=== PATIENT | male | born 1980 | race African-American/Black ===

== ENCOUNTER 2020-10-14 11:02 | Emergency (ER) | payer MEDICAID ==
[~2020-10-14] VITALS: Ht 175.3 cm; Wt 117.9 kg
[2020-10-14 11:08] VITALS: BP 150/88
--- NOTE | 2020-10-14 11:13 | NUR ---
Patient ambulated to bed 3. RN evaluating the patient at bedside.
--- NOTE | 2020-10-14 11:35 | NUR ---
40 y/o M coming in from home with c/c sore throat x 5 days. Patient states history of sleep apnea and used his old CPAP machine on Saturday. Patient reports cleaning out the system, however, forgot to clean out the filter. Patient states on Saturday, he began experiencing sore throat, body aches, fever/chills, "swollen neck," and ear pain. Patient states sore throat as 10/10 pain, scratchy/intermittent, non-radiating that worsens with swallowing. Patient describes ear pain to bilateral ear, right more painful than left. Patient states OTC medications of Tylenol and Ibuprofen without relief; states masha/honey and salt water rinses without relief as well. Pt placed onto engine monitor; SpO2 98% on room air with good tidal volume; RR 22 even/unlabored. Lung sounds CTA. Denies any recent Covid vaccinations or exposure. Bed locked in lowest position, side rails x 1, call light in reach. PMH: sleep apnea Meds: Denies Sx: Back sx 2013 NKA
--- NOTE | 2020-10-14 11:54 | NUR ---
Dr. Odell is evaluating patient at bedside.
[2020-10-14] MEDS ORDERED: AMPICILLIN/SULBACTAM 3 GM in NACL 0.9% 100 ML IV ONE (12:05)
[2020-10-14] MEDS ORDERED: KETOROLAC 15 MG/ML VIAL IVP ONE (12:05)
[2020-10-14] MEDS ORDERED: AMPICILLIN/SULBACTAM 3 GM VIAL ONE (12:12)
--- NOTE | 2020-10-14 12:17 | NUR ---
Signature obtained for CT Neck consent form.
--- NOTE | 2020-10-14 12:20 | NUR ---
Blood sample collected, handed to CPT Delonte at ER bedside.
--- NOTE | 2020-10-14 12:34 | NUR ---
Strep A swab collected, handed to CPT Delonte at ER bedside.
--- NOTE | 2020-10-14 12:35 | NUR ---
Patient is awake, sitting in high-fowlers position on telephone. histotechnologist supervisor remains in place; respirations even/unlabored. Bed locked in lowest position, side rails x 1, call light in reach. All pt needs met at this time.
--- NOTE | 2020-10-14 12:38 | NUR ---
Advised CT is delayed due to biopsy procedure.
[2020-10-14 12:40] LABS: BASOPHILS # (AUTO) 0.1 K/uL (0.00-0.22); BASOPHILS % (AUTO) 0.8 % (0.0-2.0); EOSINOPHILS # (AUTO) 0.1 K/uL (0-0.4); EOSINOPHILS % (AUTO) 0.5 % (0.0-4.0); HEMATOCRIT 47.4 % (36-52); HEMOGLOBIN 15.6 g/dL (12.0-18.0); LYMPHOCYTES % (AUTO) 18.7 % (20.5-51.1); MEAN CORPUSCULAR HEMOGLOBIN 29 pg (27-31); MEAN CORPUSCULAR HGB CONC 33 g/dL (33-37); MEAN CORPUSCULAR VOLUME 89.1 fL (80-94); MONOCYTES % (AUTO) 18.8 % (1.7-9.3); NEUTROPHILS # (AUTO) 6.7 K/uL (1.8-7.7); NEUTROPHILS % (AUTO) 61.2 % (42.2-75.2); PLATELET COUNT (AUTO) 237 K/uL (140-450); RED BLOOD CELL COUNT(AUTO) 5.31 MIL/uL (4.20-6.10); WHITE BLOOD COUNT (AUTO) 10.9 K/uL (4.8-10.8)
[2020-10-14 13:02] LABS: ALBUMIN 3.3 g/dL (3.4-5.0); ANION GAP 15.2 (8-16); CARBON DIOXIDE 23.4 mmol/L (21-32); CREATININE 1.1 mg/dL (0.6-1.3); POTASSIUM 5.6 mmol/L (3.5-5.1); TOTAL BILIRUBIN 0.9 mg/dL (0.0-1.0)
--- NOTE | 2020-10-14 13:06 | NUR ---
Patient presents with both eyes closed in high-fowlers position. Patient SpO2 93% on room air; patient awaken and SpO2 98% on room air. Patient states low SpO2 normal for him due to history of sleep apnea. Respirations even/unlabored. Bed locked in lowest position, side rails x 1, call light in reach.
--- NOTE | 2020-10-14 14:00 | NUR ---
Patient states positive relief after Toradol 15mg IVP; reports pain 5/10 at this time. bus driver/monitor remains in place. Bed locked in lowest position, side rails x 1. Patient advised to utilize call light if pain increases to an 8.
--- NOTE | 2020-10-14 15:28 | NUR ---
Patient resting in semi-fowlers position with both eyes open. vp securities remains in place; respirations even/unlabored. Bed locked in lowest position, side rails x 1, call light in reach.
--- NOTE | 2020-10-14 15:45 | NUR ---
isotope technician disconnected pt from cardiac cath rn and transported to CT via gurney.
--- NOTE | 2020-10-14 16:00 | NUR ---
Patient returned from CT via gurney; placed back onto teacher learning disabled. Bed locked in lowest position, side rails x 1, call light in reach.
[2020-10-14] MEDS ORDERED: DEXAMETHASONE 10 MG/ML VIAL IVP ONE (16:25)
--- NOTE | 2020-10-14 16:35 | NUR ---
Patient in semi-fowlers position on telephone with family. youth nutritional monitor in place. Respirations even/unlabored. All pt needs met at this time.
--- NOTE | 2020-10-14 16:59 | NUR ---
Patient provided with 2 water cups and juice per request d/t dry mouth. monitoring coordinator remains in place. Respirations even/unlabored. All pt needs met at this time. Bed locked in lowest position, side rails x 1, call light in reach.
--- NOTE | 2020-10-14 17:20 | NUR ---
Dr. Odell is reevaluating patient at bedside.
--- NOTE | 2020-10-14 17:25 | NUR ---
Patient provided with status update regarding CT results. Patient in position of comfort in no respiratory distress. Respirations even/unlabored. quality assurance monitor body remains in place. SpO2 98% on room air. Bed locked in lowest position, side rails x 1, call light in reach.
--- NOTE | 2020-10-14 17:42 | NUR ---
Signature obtained for patient transfer acknowledgement form.
--- NOTE | 2020-10-14 17:55 | NUR ---
Note undone in EDM - 10/14/20 at 1820 by DILEEP Patient discharged with v/s stable. Written and verbal after care instructions given and explained. Patient alert, oriented and verbalized understanding of instructions. Ambulatory with steady gait. All questions addressed prior to discharge. ID band removed. Patient advised to follow up with PMD. Rx of Ibuprofen, Hydrocodone/Acetaminophen given. Patient educated on indication of medication including possible reaction and side effects. Opportunity to ask questions provided and answered.
--- NOTE | 2020-10-14 17:55 | NUR ---
Kenroy dontaorhonda in [facility] - 10/14/20 at 1820 by DILEEP [id number]: Unable to complete Discharge Disposition due to application error
--- NOTE | 2020-10-14 18:15 | NUR ---
Patient in position of comfort; both eyes open on telephone with family. filling operator in place. Respirations even/unlabored. All questions answered at this time; patient made aware of [facility] ETA 1840. Bed locked in lowest position, side rails x 1, call light in reach.
--- NOTE | 2020-10-14 18:17 | NUR ---
Patient to be transferred to [facility] ER. Is being transferred due to higher level of care (ENT specialist). Receiving facility has accepting physician and available space. ER physician has signed transfer form. Patient or responsible alliance party has agreed to transfer and signed form. Patient belongings inventoried and will be sent with patient. Copy of nursing notes, lab reports, EKG, Physicians Orders and X-rays to be sent with patient. Report called to LIZETTE Guzman at receiving facility. [facility] ambulance service has been called for transfer. ETA is 1840.
--- NOTE | 2020-10-14 18:17 | NUR ---
Report given to LIZETTE Guzman at [facility]. All questions answered and advised [facility] ETA 30 minutes (1840 pick-up).
--- NOTE | 2020-10-14 18:45 | NUR ---
Analilia (mother) in [facility]; given patient's car keys per request. Mother provided iPhone wall outlet and charging cable, handed to patient at bedside.
--- NOTE | 2020-10-14 19:04 | NUR ---
Patient advised of updated [facility] ETA of [address] Oro made aware of 8/10 pain and request for medication. Orders placed.
[2020-10-14] MEDS ORDERED: MORPHINE SULFATE 4 MG/ML SYR IVP ONE (19:05)
--- NOTE | 2020-10-14 19:15 | NUR ---
Report and transfer of care given to Saroj night baker RN.
--- NOTE | 2020-10-14 19:20 | NUR ---
RECEIVED REPORT FROM LIZETTE REDDY. [facility] OF CARE AT THIS TIME.
[2020-10-14 20:43] VITALS: BP 130/72
--- NOTE | 2020-10-14 20:43 | NUR ---
Patient to be transferred to [facility]. Is being transferred due to HIGHER LEVEL OF CARE AND CONTINUATION OF CARE. Receiving facility has accepting physician and available space. ER physician has signed transfer form. Patient or responsible democrat has agreed to transfer and signed form. Patient belongings inventoried and will be sent with patient. Copy of nursing notes, lab reports, EKG, Physicians Orders and X-rays to be sent with patient. Report called to LIZETTE MODI at receiving facility. [facility] ambulance service has been called for transfer. ETA is NOW.
== END 2020-10-14 20:47 ==
LOC: MED 11:02
DX: J39.0 Retropharyngeal and parapharyngeal abscess (principal)
CPT/HCPCS: 36415; 70491; 80053; 85025; 86140; 86703; 87081; 96365; 96375; 99285; J0295; J1100; J1885; J2270